=== PATIENT | male | born 1980 | race Two or more races ===

== ENCOUNTER 2021-02-21 18:59 | Emergency (ER) | payer MEDICAID, OTHER ==
[~2021-02-21] VITALS: Ht 172.7 cm; Wt 81.6 kg
[2021-02-21] MEDS ORDERED: METHOCARBAMOL 500 MG TAB PO ONE (23:45)
[2021-02-21] MEDS ORDERED: KETOROLAC TROMETH 60MG/2ML VIAL IM ONE (23:45)
[2021-02-22] MEDS ORDERED: ONDANSETRON ODT 4 MG TAB PO ONE (01:15)
[2021-02-22] MEDS ORDERED: MORPHINE SULFATE INJECTION 2 MG/ML SYRG IM ONE (01:15)
[2021-02-22] MEDS ORDERED: IBUP800T27 PO (02:27)
[2021-02-22] MEDS ORDERED: METH500T22 PO (02:27)
[2021-02-22 04:12] VITALS: BP 130/88
== END 2021-02-22 02:38 | disposition home or self-care (01) ==
LOC: ER 18:59
DX: S66.911A Strain of unspecified muscle, fascia and tendon at wrist and hand level, right hand, initial encounter (principal); Z79.1 Long term (current) use of non-steroidal anti-inflammatories (NSAID); Z79.899 Other long term (current) drug therapy; X58.XXXA Exposure to other specified factors, initial encounter; Y93.89 Activity, other specified; Y92.89 Other specified places as the place of occurrence of the external cause; Y99.8 Other external cause status
CPT/HCPCS: 73110; 96372; 99284; J1885; J2270; Q0162